=== PATIENT | male | born 1955 | race Caucasian/White ===

== ENCOUNTER 2024-08-16 07:29 | Day surgery (SDC) | payer MEDICARE ==
[~2024-08-16 07:29] MED LIST: Acetaminophen 325 MG Tab PO ONE; Dexamethasone 4 MG/ML 5 ML MDV ONE; Lidocaine 1% 5 ML VIAL ONE; Midazolam 1 MG/ML 2 ML SDV ONE; Propofol 200 MG/20 ML SDV ONE; ceFAZolin 2 GM Vial ONE; fentaNYL 100 MCG/2 ML SDV ONE
[2024-08-16] MEDS ORDERED: Lactated Ringers 1,000 ML IV ONE (07:30)
[2024-08-16] MEDS ORDERED: Ropivacaine 0.5% 5 MG/ML 30 ML SDV ONE (08:02)
[2024-08-16] MEDS ORDERED: EPINEPHrine 1 MG/ML SDV ONE (08:02)
[2024-08-16] MEDS: Pregabalin 25 MG Cap PO SCH (08:13)
[2024-08-16] MEDS: oxyCODONE ER 10 MG TAB.ER PO SCH (08:13)
[2024-08-16] MEDS: Acetaminophen 325 MG Tab PO SCH (08:14)
[2024-08-16] MEDS ORDERED: Ondansetron 4 MG/2 ML SDV IVPUSH PRN (08:29)
[2024-08-16] MEDS ORDERED: fentaNYL 100 MCG/2 ML SDV IVPUSH PRN (08:29)
[2024-08-16] MEDS ORDERED: HYDROmorphone 0.5 MG/0.5 ML Syringe IVPUSH PRN (08:29)
[2024-08-16] MEDS ORDERED: ePHEDrine 50 MG/ML SDV ONE (08:42)
[2024-08-16] MEDS ORDERED: Metoclopramide 10 MG/2 ML SDV ONE (08:44)
[2024-08-16] MEDS ORDERED: Lactated Ringers 1,000 ML ONE (08:52)
[2024-08-16] MEDS ORDERED: oxyCODONE 5 MG Tab PO PRN (08:54)
[2024-08-16] MEDS ORDERED: Phenylephrine 1% 10 MG/ML SDV ONE (09:02)
[2024-08-16] MEDS ORDERED: Propofol 200 MG/20 ML SDV ONE (09:47)
[2024-08-16] MEDS: Tranexamic Acid 1,000 MG/10 ML Vial ONE (09:52)
[2024-08-16] MEDS: Vancomycin 1 GM SDV ONE (09:52)
[2024-08-16] MEDS: Morphine 8 MG, EPINEPHrine 0.3 MG, Cefuroxime 750 MG, Ketorolac 30 MG, Sodium Chloride ... PRN (09:52)
[2024-08-16] MEDS ORDERED: Ketorolac 30 MG/ML SDV ONE (09:55)
[2024-08-16] MEDS: Bupivacaine 0.25% 10 ML SDV ONE (10:10)
[2024-08-16] MEDS: Triamcinolone Acetonide 40 MG/ML 1 ML SDV ONE (10:10)
[2024-08-17] MEDS ORDERED: Sodium Chloride 0.9% 10 ML Syringe FLUSH PRN (06:00)
[2024-08-17] MEDS ORDERED: Lactated Ringers 1,000 ML IV SCH (06:00)
[2024-08-17] MEDS ORDERED: Sodium Chloride 0.9% 10 ML Syringe FLUSH SCH (09:00)
== END 2024-08-16 13:30 | disposition home or self-care (01) ==
LOC: JD.SDS 07:29
PROVIDERS: ATTEND Orthopaedic Surgery
DX: M17.0 Bilateral primary osteoarthritis of knee (principal); I10 Essential (primary) hypertension; K21.9 Gastro-esophageal reflux disease without esophagitis; E78.1 Pure hyperglyceridemia; N40.0 Benign prostatic hyperplasia without lower urinary tract symptoms; E83.119 Hemochromatosis, unspecified; Z79.899 Other long term (current) drug therapy
CPT/HCPCS: 0055T; 20610; 27447; 64447; 73560; 97110; 97161; C1713; C1776; J0171; J0665; J0690; J0697; J1100; J1885; J2250; J2270; J2371; J2704; J2765; J2795; J3010; J3301; J3370; J7120; A9270-GY; J3490